=== PATIENT | male | born 1945 | race Caucasian/White ===

== ENCOUNTER 2024-01-29 02:16 | Outpatient (CLI) | payer MEDICARE, SELFPAY ==
[2024-01-29] MEDS: Levalbuterol HFA 15 GM INH 4 PUFF IH (16:45)
[2024-01-29] MEDS: Inhaler, Assist Device 1 EACH MC (16:45)
--- NOTE | 2024-01-30 11:41 | W.PFT ---
Date of service: 01/29/24 Time of Service: 14:59 Pulmonary Function Test Result Indications: COPD Interpretation Spirometry: There is moderate diminished airflow. No bronchodilator response Lung Volumes: There is a slightly decrease TLC. Diffusion Capacity: Decreased diffusion Airway Pressure: Normal airways resistance. Impression Moderate airflow obstruction with a decreased diffusion and decreased lung volumes. This is consistent with COPD with emphysema, however cannot rule out co-morbid restrictive lung disease. Clinical Correlation therefore is recommended.
== END 2024-01-29 02:17 | disposition home or self-care (01) ==
LOC: RT 02:17
PROVIDERS: PCP Internal Medicine; Visit Provider Student in an Organized Health Care Education/Training Program
DX: J44.89 Other specified chronic obstructive pulmonary disease (principal)
CPT/HCPCS: 94060; 94726; 94729